=== PATIENT | male | born 1960 | race Caucasian/White ===

== ENCOUNTER 2024-06-13 08:10 | Outpatient (CLI) | payer BC | END 2024-06-13 08:11 | disposition home or self-care (01) | LOC: CSHCT 08:10 | PROVIDERS: ATTEND Family Medicine | DX: Z12.2 Encounter for screening for malignant neoplasm of respiratory organs (principal); Z87.891 Personal history of nicotine dependence | CPT/HCPCS: 71271 ==

== ENCOUNTER 2024-11-12 16:20 | Emergency (ER) | payer BC ==
[~2024-11-12 16:20] MED LIST: Iopamidol 370 76% 100 ML VIAL ONE
[2024-11-12] MEDS ORDERED: niCARdipine 25 MG/10 ML SDV ONE ×2 (16:52→22:19)
[2024-11-12 16:53] LABS: #Basophils 0.09 10x3/uL (0.0-0.2); #Eosinophils 0.34 10x3/uL (0.0-0.5); #Monocytes 0.68 10x3/uL (0.0-1.1); #Neutrophils 6.22 10x3/uL (1.5-8.4); %Basophils 0.9 % (0.0-2.0); %Eosinophils 3.4 % (0.0-6.0); %Lymphocytes 26.4 % (18.0-47.0); %Monocytes 6.8 % (0.0-10.0); %Neutrophils 62.3 % (40.0-75.0); Hematocrit 48.8 % (38.8-50.0); Mean Corpuscular HGB CONC 34.8 g/dL (32.0-36.0); Mean Corpuscular Hemoglobin 31.8 pg (27.0-33.0); Mean Corpuscular Volume 91.4 fL (81.2-95.1); Mean Platelet Volume 10.3 fL (7.4-10.4); Platelet Count 282 10x3/uL (150-450); RBC Distribution Width 13.3 % (11.5-14.5); Red Blood Cell (RBC) Count 5.34 10x6/uL (4.32-5.72); White Blood Cell (WBC) Count 9.98 10x3/uL (3.5-10.5)
[2024-11-12 17:18] LABS: Anion Gap 16 mmol/L (10-20); BUN (Urea Nitrogen) 20 mg/dL (8.4-25.7); Calc. Creatinine Clearance 0 mL/min (70-130); Carbon Dioxide 21 mmol/L (23-31); Chloride 107 mmol/L (98-107); Potassium 4.3 mmol/L (3.5-5.1); Sodium 140 mmol/L (136-145)
[2024-11-12 17:19] LABS: ALT (SGPT) 23 U/L (Less than 45); AST (SGOT) 21 U/L (11-34); Albumin 4.3 g/dL (3.1-4.5); Alkaline Phosphatase 66 U/L (40-110); Bilirubin, Total 0.5 mg/dL (0.3-1.2); Calcium 9.5 mg/dL (7.8-10.44); Estimated GFR 84; Glucose 130 mg/dL (80-115); Protein, Total 7.3 g/dL (5.8-8.1)
[2024-11-12 17:24] LABS: Troponin I Less than 0.010 ng/mL (< 0.028)
== END 2024-11-13 | disposition short-term general hospital (02) ==
LOC: CSHERS 16:20
DX: I63.9 Cerebral infarction, unspecified (principal); I66.22 Occlusion and stenosis of left posterior cerebral artery; R47.1 Dysarthria and anarthria; I10 Essential (primary) hypertension; E11.9 Type 2 diabetes mellitus without complications; E78.00 Pure hypercholesterolemia, unspecified; F17.210 Nicotine dependence, cigarettes, uncomplicated; Z55.6 Problems related to health literacy; Z79.84 Long term (current) use of oral hypoglycemic drugs; Z79.899 Other long term (current) drug therapy
CPT/HCPCS: 36416; 37195; 70450; 70496; 70498; 80053; 84484; 85025; 85610; 85730; 93005; 93010; 96374; Q9967

== ENCOUNTER 2025-05-02 14:22 | Outpatient (CLI) | payer BC | END 2025-05-02 14:23 | disposition home or self-care (01) | LOC: CSHCT 14:22 | PROVIDERS: ATTEND Student in an Organized Health Care Education/Training Program | DX: Z12.2 Encounter for screening for malignant neoplasm of respiratory organs (principal); F17.210 Nicotine dependence, cigarettes, uncomplicated | CPT/HCPCS: 71271 ==